=== PATIENT | male | born 1960 | race Caucasian/White ===

== ENCOUNTER 2024-08-20 10:12 | Emergency (ER) | payer OTHER ==
[~2024-08-20] VITALS: Ht 185.4 cm; Wt 90.3 kg
[2024-08-20 10:17] VITALS: TEMP 98.5
[2024-08-20] MEDS ORDERED: iohexol 350MG/ML 100ml bottle IV ONE (10:24)
[2024-08-20 10:32] LABS: BASOPHILS % (AUTO) 0.3 % (0-1); EOSINOPHILS # (AUTO) 0.2 X10'3 (0-0.9); EOSINOPHILS % (AUTO) 2.7 % (0-6); HEMATOCRIT 47.6 % (42.0-52.0); HEMOGLOBIN 16.3 g/dl (14.0-17.9); LYMPHOCYTES # (AUTO) 1.7 X10'3 (1.1-4.8); LYMPHOCYTES % (AUTO) 19.9 % (21-51); MEAN CORPUSCULAR HEMOGLOBIN 30.7 PG (27.0-31.0); MEAN CORPUSCULAR HGB CONC 34.1 g/dL (33.0-36.5); MEAN CORPUSCULAR VOLUME 89.8 FL (78-98); MEAN PLATELET VOLUME 7.8 FL (7.4-10.4); MONOCYTES # (AUTO) 0.4 X10'3 (0-0.9); MONOCYTES % (AUTO) 5.1 % (2-12); NEUTROPHILS # (AUTO) 6.2 X10'3 (1.8-7.7); PLATELET COUNT 320 X10'3 (140-440); RED CELL DISTRIBUTION WIDTH 13.1 % (11.5-14.5); WHITE BLOOD COUNT 8.6 X10'3 (4.5-11.0)
--- NOTE | 2024-08-20 10:44 | Physician Documentation ---
History of Present Illness ~ Chief Complaint: Stroke Alert Stated Complaint: POSS STROKE Time Seen by MD: 10:27 HPI 64-year-old male presenting with some lightheadedness and brain fogginess that started about 2 hours ago. Patient states that this morning he took his dog for a jog outside. When he returned home he felt very lightheaded and states that his head felt fuzzy. He denies any generalized weakness , denies any slurred speech denies syncope, denies chest pain, shortness of breath or any other associated symptoms. Patient had a cardiac ablation done 18 years ago for atrial fibrillation but has been doing fine since. Medication Reconciliation Allergies: Coded Allergies: No Known Allergies (Unverified , 08/20/24) Past Medical History Past Medical History: No Pertinent History Review of Systems All Other Systems at this time: Reviewed and Negative Physical Exam Vital Signs: Temperature: 98.5, Source: Temporal, Heart Rate: 66, Respiratory Rate: 18, BP: 172/104, Pulse Oximetry: 99, Weight: 90.300 Oxygen Flow Rate: 0 General Appearance I have reviewed the triage vitals. CONST: Well developed and well nourished. In no acute distress HENT: Head Atraumatic EYES: Pupils are equal, round and reactive to light. Normal conjunctiva NECK: Normal range of motion. Supple. CARDIO: Normal rate and regular rhythm. No murmurs, rubs, or gallops. S1, S2. PULM/CHEST: No respiratory distress. Lungs clear to auscultation. No wheeze ABD: Soft and nontender. Nondistended. Bowel sounds normal. No guarding. : Exam deferred MSK: No edema. No deformity. NEURO: Alert and oriented to person, place and time. Moving all extremities. No weakness. Normal intact sensation. Cranial nerves 2-12 are normal. Normal coordination. Normal gait. SKIN: Warm and dry. PSYCH: Normal mood and affect. Good eye contact. Progress Results/Orders Results/Orders Orders - MARIA FERNANDA ANGELES MD Monitor (08/20/24 10:23) 2 Large Bore Ivs (08/20/24 10:23) Chest,Single View (08/20/24 10:23) Accucheck (08/20/24 10:23) Ct Stroke Alert (08/20/24 10:15) [place] Prov.Neuro Consult (08/20/24 10:23) Hs Troponin I W Calculations (08/20/24 12:27) Hs Troponin I W Calculations (08/20/24 13:27) Normal Saline 1000ml (Sodium Chloride 10 (08/20/24 11:25) Normal Saline 1000ml (Sodium Chloride 10 (08/20/24 11:40) Completed Orders - MARIA FERNANDA ANGELES MD Cbc/Diff (08/20/24 10:23) Electrocardiogram (08/20/24 10:23) Chest,Single View (08/20/24 10:23) Ct Stroke Alert (08/20/24 10:15) BMP (08/20/24 10:23) PTT (08/20/24 10:23) Pt Inr (08/20/24 10:23) Hs Troponin I W Calculations (08/20/24 10:27) Vital Signs 08/20/24 08/20/24 08/20/24 10:17 10:41 11:15 Temp 98.5 Pulse 66 58 Resp 18 13 10 B/P (MAP) 172/104 138/89 (105) Pulse Ox 99 98 O2 Flow Rate 0 Laboratory Tests Test 08/20/24 10:24 08/20/24 10:25 Glucometer 94 White Blood Count 8.6 Red Blood Count 5.30 Hemoglobin 16.3 Hematocrit 47.6 Mean Corpuscular Volume 89.8 Mean Corpuscular Hemoglobin 30.7 Mean Corpuscular Hemoglobin Concent 34.1 Red Cell Distribution Width 13.1 Platelet Count 320 Mean Platelet Volume 7.8 Neutrophils (%) (Auto) 72.0 Lymphocytes (%) (Auto) 19.9 L Monocytes (%) (Auto) 5.1 Eosinophils (%) (Auto) 2.7 Basophils (%) (Auto) 0.3 Neutrophils # (Auto) 6.2 Lymphocytes # (Auto) 1.7 Monocytes # (Auto) 0.4 Eosinophils # (Auto) 0.2 Basophils # (Auto) 0.0 CBC Comment Prothrombin Time 10.9 INR International Normalized Ratio 1.1 Activated Partial Thromboplast Time 27 Coagulation Comments Sodium Level 139 Potassium Level 4.2 Chloride Level 105 Carbon Dioxide Level 24.9 Anion Gap 9 Blood Urea Nitrogen 14 Creatinine 1.18 H Estimated GFR/1.73 m2 62 BUN/Creatinine Ratio 11.9 Glucose Level 103 Calcium Level 9.4 Troponin I High Sensitivity 15 Albumin 4.1 Chemistry Comments EKG/XRAY/CT/US/VASC/MRI EKG : Additional Comment EKG as interpreted by me shows normal sinus rhythm with a rate of 59 beats per minute, normal axis, no ischemia. Chest X-Ray : Additional Comments CHEST RADIOGRAPH Indication: Stroke Alert Technique: Single frontal view of the chest was obtained COMPARISON: None FINDINGS: Lines and Tubes: None Lungs: Clear Pleura: No effusion. No pneumothorax. Cardiomediastinal contours: Unremarkable Bones: Unremarkable IMPRESSION: No acute disease. : Impression EXAM: CT CT STROKE ALERT INDICATION: Stroke Alert TECHNIQUE: CT of the head without intravenous contrast. Radiation Dose : 1. Head: CT Dose: CTDI volume is 65 mGy. Dose-length product is 1217.9 mGy*cm The dose indicators for CT are the volume Computed Tomography (CT) Dose Index (CTDIvol) and the Dose Length Product (DLP), and are measured in units of mGy and mGy-cm, respectively. These indicators are not patient dose, but values ge nerated from the CT scanner acquisition factors. The report includes radiation exposure data for exposures received during this examination. COMPARISON: None FINDINGS: There is no evidence of acute intracranial hemorrhage, extra-axial collection, mass effect, midline shift, herniation or hydrocephalus. The ventricles, sulci and cisterns are age appropriate. The atwood-white differentiation is intact. Patchy periventricular and subcortical white matter hypoattenuation is nonspecific but may be related to small vessel ischemic disease. The visualized paranasal sinuses and mastoid air cells are clear. The surrounding soft tissues and osseous structures are unremarkable. IMPRESSION: No acute intracranial abnormality. Medical Decision Making Additional Information This is a 64-year-old male presenting with acute onset lightheadedness after he went on a jog and likely did not drink enough fluids. Initially a stroke code was called with concern for this however the patient's neurological exam is completely normal. We did consult tele Neurology who also saw the patient and did not believe that he is having any CVA or acute intracranial event. Head CT noncontrast was normal. Patient's lab work is completely normal aside from a minimally elevated creatinine which would suggest some mild dehydration. Patient's symptoms completely resolved after he was given 1 L of IV normal saline. Remainder of lab workup is unremarkable. At this point in time he is stable and safe to be discharged home. I advised him to drink plenty of fluids and monitor for any recurrence of symptoms. Follow up with primary care physician and return to ED with any acutely worsening symptoms. Departure Disposition: HOME / SELF CARE / HOMELESS Impression: Primary Impression: Dehydration Additional Impression: Lightheadedness Condition: Improved Discharge Instructions: Dehydration, Adult Additional Instructions: Get plenty of rest and drink plenty of fluids. Your symptoms were likely secondary to some mild dehydration. Your workup today in the emergency department is normal and there are no signs of any stroke. Please monitor her symptoms for any recurrence. Follow up closely with her primary care physician and return to the ED with any acutely worsening symptoms. Referrals: NO PRIMARY CARE PROVIDER (PCP) Signature Scribe Signature: 1 Attestation: 1 MARIA FERNANDA ANGELES MD Aug 20, 2024 10:44
--- NOTE | 2024-08-20 10:47 | RADIOLOGY REPORT ---
EXAM: CT CT STROKE ALERT INDICATION: Stroke Alert TECHNIQUE: CT of the head without intravenous contrast. Radiation Dose : 1. Head: CT Dose: CTDI volume is 65 mGy. Dose-length product is 1217.9 mGy*cm The dose indicators for CT are the volume Computed Tomography (CT) Dose Index (CTDIvol) and the Dose Length Product (DLP), and are measured in units of mGy and mGy-cm, respectively. These indicators are not patient dose, but values generated from the CT scanner acquisition factors. The report includes radiation exposure data for exposures received during this examination. COMPARISON: None FINDINGS: There is no evidence of acute intracranial hemorrhage, extra-axial collection, mass effect, midline s hift, herniation or hydrocephalus. The ventricles, sulci and cisterns are age appropriate. The atwood-white differentiation is intact. Patchy periventricular and subcortical white matter hypoattenuation is nonspecific but may be related to small vessel ischemic disease. The visualized paranasal sinuses and mastoid air cells are clear. The surrounding soft tissues and osseous structures are unremarkable. IMPRESSION: No acute intracranial abnormality. Radiation optimization: All CT scans at this facility use at least one of these dose optimization lexi hniques: automated exposure control mA and/or kV adjustment per patient size (includes targeted exam s where dose is matched to clinical indication) or iterative reconstruction.
[2024-08-20 10:48] LABS: ALBUMIN 4.1 G/DL (3.4-5.0); BLOOD UREA NITROGEN 14 MG/DL (7-18); BUN/CREATININE RATIO 11.9 (10.0-20.0); CALCIUM 9.4 MG/DL (8.5-10.1); CHLORIDE 105 MMOL/L (99-107); CREATININE 1.18 MG/DL (0.60-1.10); GLUCOSE 103 MG/DL (70-104); POTASSIUM 4.2 MMOL/L (3.5-5.1); TOTAL CARBON DIOXIDE 24.9 MMOL/L (24-32); eCRCL 71 ML/MIN; eGFR 62 ML/MIN
--- NOTE | 2024-08-20 10:50 | ELECTROCARDIOGRAPH REPORT ---
[facility] Test Date: 2024-08-20 Test Time: 10:48:06 Pat Name: TRACY OLIVEIRA Department: [facility]- Patient ID: [facility]-[id number] Room: Gender: M [employer]: : 1960 Requested By: MARIA FERNANDA ANGELES Order Number: [id number] Reading MD: Measurements Intervals [place] Rate: 59 P: 36 DE: 168 QRS: 5 QRSD: 99 T: 9 QT: 406 QTc: 403 Interpretive Statements Sinus bradycardia Consider anterior infarct Baseline wander in lead(s) V3 Please click the below link to view image of tracing.
[2024-08-20 10:51] LABS: APTT 27 SECONDS (22-32); INR 1.1 INR; PROTHROMBIN TIME 10.9 SECONDS (9.0-12.0)
--- NOTE | 2024-08-20 10:54 | RADIOLOGY REPORT ---
CHEST RADIOGRAPH Indication: Stroke Alert Technique: Single frontal view of the chest was obtained COMPARISON: None FINDINGS: Lines and Tubes: None Lungs: Clear Pleura: No effusion. No pneumothorax. Cardiomediastinal contours: Unremarkable Bones: Unremarkable IMPRESSION: No acute disease.
[2024-08-20 11:07] LABS: ANION GAP 9 (8-16); SODIUM 139 MMOL/L (135-145)
[2024-08-20] MEDS: normal saline 1000ml 1,000 ML IV ONE ×2 (11:28→11:42)
[2024-08-20 12:51] VITALS: BP 147/81; PULSE 56; RESP 11; O2SAT 99
--- NOTE | 2024-08-20 13:43 | [facility] CONSULT REPORT ---
[facility] Procedure Note [facility] Procedure Note Consult [facility] # Demographics Consult Type: Acute Stroke Level 1 (0-4.5 hrs) Patient Location: Emergency Room First Name: TRACY Last Name: TEE Date of : 1960 Age: 64 Gender: Male Facility: [facility] Time of Initial Page (): 08/20/2024 10:31 Time of Return Call (): 08/20/2024 10:31 # HPI Chief Complaint: lightheadedness History: 64M with afib s/p ablation presents with lightheadedness. Went for a run, came back and felt lightheaded. No weakness, numbness/tingling, incoordination. BP 172/104. No dizziness, room spinning, nausea/vomiting. [place] a little off balance, but that has all resolved. # Scores Time of exam and NIHSS (): 08/20/2024 10:34 Level of Consciousness 1a: [0] = Alert; keenly responsive LOC Questions 1b: [0] = Answers both questions correctly LOC Commands 1c: [0] = Performs both tasks correctly Best Gaze 2: [0] = Normal Visual 3: [0] = No visual loss Facial Palsy 4: [0] = Normal symmetrical movements Motor Arm Left 5a: [0] = No drift Motor Arm Right 5b: [0] = No drift Motor Leg Left 6a: [0] = No drift Motor Leg Right 6b: [0] = No drift Limb Ataxia 7: [0] = Absent Sensory 8: [0] = Normal Best Language 9: [0] = No aphasia Dysarthria 10: [0] = Normal Extinction and Inattention 11: [0] = No abnormality NIHSS Total: 0 # Data Time Head CT personally read by me ( Time): 08/20/2024 10:[address]: - no bleed - preliminarily reviewed by me, please refer to radiology read for official reading # Assessment Impression: Lightheadedness # Plan Thrombolytic/Intervention: NOT IV Thrombolysis or IA Intervention candidate Thrombolytic/Intraarterial Exclusion: - IV thrombolytic and IA intervention considered but not recommended as this patient's symptoms are not clinically consistent with an assumed diagnosis of stroke Other: - If patient has any neurological deterioration please call me back immediately - I have discussed my recommendations with the referring provider - may discharge home if complete symptom resolution and all urgent imaging negative for acute pathology Disposition: observation # Logistics Attestation of consult completion: The patient is located at: [facility]. Facility staff participated in the visit. I performed this telemedicine visit from my offsite office utilizing interactive 2 way audio and visual telecommunication technology. Consent: Verbal consent was obtained from the patient and/or family for this encounter. Total time spent in telemedicine encounter: I spent 10 minutes reviewing clinical data and/or imaging, obtaining history, examining the patient, communicating with the onsite care team, and in preparation of this report. Electronically signed at 08/20/2024 13:42 (Scott Time) by Chidi Howell MD Neuro Consult Order placed for: Yes CHIDI HOWELL MD Aug 20, 2024 13:43
== END 2024-08-20 12:52 | disposition home or self-care (01) ==
LOC: ER 10:13
DX: E86.0 Dehydration (principal); R42 Dizziness and giddiness; I48.91 Unspecified atrial fibrillation
CPT/HCPCS: 36415; 70450; 71045; 80048; 82948; 84484; 85025; 85610; 85730; 93005; 99285; J7030; Q9967